=== PATIENT | female | born 1960 | race Caucasian/White ===

== ENCOUNTER → 2024-09-24 14:07 | Outpatient (REF) | payer OTHER, SELFPAY | LOC: WDC 14:07 | PROVIDERS: ATTENDING PHYSICIAN Obstetrics & Gynecology; FAMILY PHYSICIAN Family Medicine | DX: Z12.31 Encounter for screening mammogram for malignant neoplasm of breast (principal) | CPT/HCPCS: 77063; 77067 ==

== ENCOUNTER → 2025-08-07 10:51 | Outpatient (REF) | payer OTHER, SELFPAY ==
[2025-08-07 12:58] LABS: Hematocrit 41.7 % (37.0-47.0); Hemoglobin 13.5 g/dL (12.0-16.0); Mean Corp Hgb Conc. 32.4 g/dL (33.0-37.0); Mean Corpuscular Volume 90.1 fL (81.0-99.0); Nucleated Red Blood Cells % 0 %; Platelet Count 238 10^3/uL (130-400); Red Cell Dist. Width 13.0 % (11.5-14.5)
[2025-08-07 13:20] LABS: Blood Urea Nitrogen 15 mg/dl (7-17); Calcium 9.5 mg/dl (8.4-10.2); Carbon Dioxide 27 mmol/L (22-30); Chloride 104 mmol/L (98-107); Glucose 88 mg/dl (70-99); Potassium 4.3 mmol/L (3.5-5.1); Sodium 136 mmol/L (135-145); eGFR > 60.00
== END ==
LOC: RAD 10:51
PROVIDERS: ATTENDING PHYSICIAN Orthopaedic Surgery
DX: Z01.818 Encounter for other preprocedural examination (principal)
CPT/HCPCS: 36415; 80048; 85025; 93005